=== PATIENT | female | born 1955 | race Caucasian/White ===

== ENCOUNTER 2016-12-26 16:21 | Observation (INO) | payer BC ==
[~2016-12-26] VITALS: Ht 172.7 cm; Wt 115.1 kg
[~2016-12-26 16:21] MED LIST: ALAVERT10 M1 PO; ALDACTONE 25MG25 M1 PO; ALLEGRA 180MG180 MG PO; AMOXICILLIN 8751 TAB PO; ASPIRIN 32325 MG/TAB PO; ASPIRIN E.C. 8181 MG PO; BENADRYL25 M2 PO; BUSPAR DIVIDOSE15 MG PO; CALCIUM + D 6001 TAB PO; CALCIUM 600MG+D1 TAB PO; CALCIUM-500 5001 CTB PO; CALCIUM600 M2 PO; CLARITIN 1010 MG/TAB PO; COLACE 100100 MG/CAP PO; COUMADIN 1010 MG/TAB PO; COUMADIN 5MG5 MG/TAB; COUMADIN 5MG5 MG/TAB PO; COZAAR 50MG50 MG/TAB PO; DESYREL 50MG50 MG PO; EFFEXOR 3737.5 MG/TA PO; EFFEXOR XR75 MG/CAP PO; FIORICET 325 MG1 TA1 PO; FLONASE NASAL S16 GM NS; FOLIC ACID 40400 MCG PO; FOLIC ACID0.4 MG PO; GLUCOSAMINE 1000 PO; GLUCOSAMINE500 M1 PO; HORIZANT600 MG PO; IRON325 M1 PO; K-DUR 10 MEQ T10 MEQ PO; LANAVITE1 CAP PO; LASIX 20MG TABL20 MG PO; LEVAQUIN 2250 MG/TAB PO; LEVAQUIN 750MG750 M1 PO; LOVENOX120 MG/0.8 SQ; MULTIPLE VITAMI1 TA5 PO; NEURONTIN300 MG/CAP PO; NEURONTIN600 MG/TAB PO; NITROSTAT0.4 MG/TAB SL; NORCO 325 MG-101 TAB PO; NORVASC 5MG5 MG/TAB PO; NYSTATIN OINTME15 GM TP; PERICOLACE; PROTONIX 40MG T40 MG PO; PROTONIX20 MG PO; TOPAMAX200 MG PO; TYLENOL 500MG500 MG PO; TYLENOL PM EXTR1 TA1 PO; ULTRAM 50MG TAB50 MG PO; VITAMIN C500 MG PO; Vicodin PO; ZOLOFT 100MG100 MG PO; ZYRTEC5 MG PO
[2016-12-26 16:46] LABS: BASO # 0.1 (0.0-0.2); BASO % 1.1 % (0.0-2.0); EOS # 0.1 (0.0-0.7); EOS % 1.1 % (0-4.0); GRAN # 1.9 (1.4-6.5); GRAN % 40.4 % (42.2-75.2); HEMATOCRIT 36.1 % (37.0-47.0); HEMOGLOBIN 10.9 g/dl (12.5-16.0); LYMPH # 2.3 (1.2-3.4); LYMPH % 48.8 % (20.0-51.0); MEAN CELL VOLUME 80 fl (80.0-100.0); MEAN CORPUSCULAR HEMOGLOBIN 24 pg (27.0-31.0); MEAN CORPUSCULAR HGB CONC 30 g/dl (33.0-37.0); MEAN PLATELET VOLUME 9.4 fl (7.4-10.4); MONO # 0.4 (0.1-0.6); MONO % 8.4 % (1.7-9.3); PLATELET COUNT 317 K/mm3 (130-400); RED BLOOD COUNT 4.51 M/mm3 (4.10-5.30); REDCELL DISTRIBUTION WIDTH-CV 17.3 % (11.5-14.5); WHITE BLOOD COUNT 4.7 K/mm3 (4.8-10.8)
[2016-12-26 16:50] LABS: INR 3.6 (0.8-3.0); PROTHROMBIN TIME 41.9 SECONDS (9.7-12.8)
[2016-12-26 16:57] LABS: ADJUSTED CALCIUM 8.8 mg/dL (8.4-10.2); ALANINE AMINOTRANSFERASE 26 U/L (9-52); ALBUMIN 4.4 gm/dL (3.5-5.0); ALKALINE PHOSPHATASE 82 U/L (50-136); ANION GAP 10 mmol/L (7-16); BILIRUBIN,TOTAL 0.4 mg/dL (0.0-1.0); BLOOD UREA NITROGEN 16 mg/dL (7-17); CALCIUM 9.1 mg/dL (8.4-10.2); CARBON DIOXIDE 26 mmol/L (22-30); CHLORIDE 102 mmol/L (98-107); CREATININE, serum 0.78 mg/dL (0.52-1.25); GLUCOSE 102 mg/dL (74-106); POTASSIUM 4.2 mmol/L (3.4-5.0); SODIUM 139 mmol/L (137-145); TOTAL PROTEIN 7.7 gm/dL (6.4-8.2)
[2016-12-26 21:19] LABS: PH 6 (5-8); SQUAMOUS EPITHELIAL 0-2 /hpf; URINE APPEARANCE Clear; URINE BACTERIA None Seen /hpf; URINE BILIRUBIN Negative (NEGATIVE); URINE BLOOD Negative (NEGATIVE); URINE COLOR Straw; URINE GLUCOSE Negative (NEGATIVE); URINE KETONE Negative (NEGATIVE); URINE RBC 0-2 /hpf; URINE UROBILINOGEN Negative (NEGATIVE); URINE WBC 0-2 /hpf
[2016-12-26 21:21] VITALS: BP 128/78; PULSE 99; TEMP 98.7
[2016-12-26 21:30] LABS: AMPHETAMINE URINE NEGATIVE; BARBITURATES URINE POSITIVE; BENZODIAZEPINES URINE NEGATIVE; BUPRENORPHINE URINE NEGATIVE; METHADONE URINE NEGATIVE; OPIATES URINE POSITIVE; OXYCODONE URINE NEGATIVE; PHENCYCLIDINE URINE NEGATIVE; PROPOXYPHENE URINE NEGATIVE; THC CANNABINOIDS URINE NEGATIVE
[2016-12-27 03:51] VITALS: BP 125/68; PULSE 60; TEMP 98.5
[2016-12-27 07:40] LABS: BASO % 1.2 % (0.0-2.0); EOS # 0.1 (0.0-0.7); EOS % 2.5 % (0-4.0); GRAN # 1.4 (1.4-6.5); GRAN % 42.1 % (42.2-75.2); HEMATOCRIT 37.1 % (37.0-47.0); LYMPH # 1.5 (1.2-3.4); LYMPH % 46.7 % (20.0-51.0); MEAN CELL VOLUME 82 fl (80.0-100.0); MEAN CORPUSCULAR HEMOGLOBIN 24 pg (27.0-31.0); MEAN CORPUSCULAR HGB CONC 30 g/dl (33.0-37.0); MEAN PLATELET VOLUME 9.3 fl (7.4-10.4); MONO # 0.2 (0.1-0.6); MONO % 7.5 % (1.7-9.3); PLATELET COUNT 283 K/mm3 (130-400); RED BLOOD COUNT 4.52 M/mm3 (4.10-5.30); REDCELL DISTRIBUTION WIDTH-CV 17.5 % (11.5-14.5); WHITE BLOOD COUNT 3.2 K/mm3 (4.8-10.8)
[2016-12-27 07:46] LABS: INR 3.3 (0.8-3.0); PROTHROMBIN TIME 38.2 SECONDS (9.7-12.8)
[2016-12-27 07:51] VITALS: BP 145/84; PULSE 63; TEMP 98.4
[2016-12-27 07:56] LABS: CALCIUM 8.7 mg/dL (8.4-10.2); CREATININE, serum 0.76 mg/dL (0.52-1.25); POTASSIUM 3.8 mmol/L (3.4-5.0)
[2016-12-27] MEDS ORDERED: NEURONTIN300 MG/CAP PO (08:10)
[2016-12-27] MEDS ORDERED: NORCO 325 MG-7.1 TAB PO ×2 (08:18→08:19)
[2016-12-27] MEDS ORDERED: COUMADIN4 MG PO ×2 (09:17→10:54)
== END 2016-12-27 10:49 | disposition home or self-care (01) ==
LOC: COL.ER 16:21 → MEDICAL 20:34
PROVIDERS: Emergency Medicine; Internal Medicine
DX: R51 Headache (principal); M85.2 Hyperostosis of skull; I10 Essential (primary) hypertension; D64.9 Anemia, unspecified; I25.10 Atherosclerotic heart disease of native coronary artery without angina pectoris; J96.10 Chronic respiratory failure, unspecified whether with hypoxia or hypercapnia; D72.819 Decreased white blood cell count, unspecified; Z87.820 Personal history of traumatic brain injury; Z79.01 Long term (current) use of anticoagulants
CPT/HCPCS: G0378; J1170; J1200; J1650; J1885; J2550; J7030

== ENCOUNTER 2017-03-12 12:06 | Emergency (ER) | payer BC ==
[~2017-03-12] VITALS: Ht 175.3 cm; Wt 118.2 kg
[~2017-03-12 12:06] MED LIST changes: +COUMADIN4 MG PO; +NORCO 325 MG-7.1 TAB PO
[2017-03-12 12:40] LABS: BASO % 0.7 % (0.0-2.0); EOS # 0.1 (0.0-0.7); EOS % 1.1 % (0-4.0); GRAN # 2.7 (1.4-6.5); GRAN % 48.7 % (42.2-75.2); LYMPH # 2.3 (1.2-3.4); LYMPH % 40.9 % (20.0-51.0); MEAN CELL VOLUME 79 fl (80.0-100.0); MEAN CORPUSCULAR HGB CONC 30 g/dl (33.0-37.0); MONO # 0.5 (0.1-0.6); MONO % 8.4 % (1.7-9.3); PLATELET COUNT 264 K/mm3 (130-400); REDCELL DISTRIBUTION WIDTH-CV 18.1 % (11.5-14.5); WHITE BLOOD COUNT 5.5 K/mm3 (4.8-10.8)
[2017-03-12 12:43] LABS: HEMATOCRIT 32.3 % (37.0-47.0); HEMOGLOBIN 9.7 g/dl (12.5-16.0); MEAN CORPUSCULAR HEMOGLOBIN 24 pg (27.0-31.0)
[2017-03-12 12:50] LABS: ADJUSTED CALCIUM 8.8 mg/dL (8.4-10.2); ALANINE AMINOTRANSFERASE 26 U/L (9-52); ALKALINE PHOSPHATASE 71 U/L (50-136); ANION GAP 8 mmol/L (7-16); BILIRUBIN,TOTAL 0.3 mg/dL (0.0-1.0); BLOOD UREA NITROGEN 15 mg/dL (7-17); CALCIUM 8.8 mg/dL (8.4-10.2); CARBON DIOXIDE 25 mmol/L (22-30); CHLORIDE 105 mmol/L (98-107); CREATININE, serum 0.87 mg/dL (0.52-1.25); GLUCOSE 85 mg/dL (74-106); POTASSIUM 4.1 mmol/L (3.4-5.0); SODIUM 139 mmol/L (137-145); TOTAL PROTEIN 6.9 gm/dL (6.4-8.2)
[2017-03-12] MEDS ORDERED: NORVASC 5MG5 MG/TAB PO (13:01)
[2017-03-12] MEDS ORDERED: MULTIVITAMIN1 CTB PO (13:01)
[2017-03-12 13:02] LABS: B-TYPE NATRIURETIC PEPTIDE 1880 pg/mL (0-125)
[2017-03-12] MEDS ORDERED: EFFEXOR XR75 MG/CAP PO (13:02)
[2017-03-12 13:03] LABS: TROPONIN-I < 0.012 ng/mL (0.000-0.034)
[2017-03-12] MEDS ORDERED: NORCO 325 MG-101 TAB PO (13:05)
[2017-03-12 13:08] LABS: PARTIAL THROMBOPLASTIN TIME 39.3 SECONDS (26.0-37.0)
[2017-03-12 13:17] LABS: INR 2.8 (0.8-3.0); PROTHROMBIN TIME 32.7 SECONDS (9.7-12.8)
[2017-03-12] MEDS ORDERED: COUMADIN 5MG5 MG/TAB PO ×2 (14:03→14:08)
[2017-03-12] MEDS ORDERED: LASIX 20MG TABL20 MG PO (14:06)
[2017-03-12 16:11] VITALS: BP 128/91; PULSE 62
== END 2017-03-12 16:10 | disposition home or self-care (01) ==
LOC: COL.ER 12:06
PROVIDERS: Emergency Medicine
DX: I11.0 Hypertensive heart disease with heart failure (principal); I50.9 Heart failure, unspecified; R07.9 Chest pain, unspecified; I25.10 Atherosclerotic heart disease of native coronary artery without angina pectoris; Z86.711 Personal history of pulmonary embolism; Z86.718 Personal history of other venous thrombosis and embolism; Z79.01 Long term (current) use of anticoagulants; J44.9 Chronic obstructive pulmonary disease, unspecified; D68.2 Hereditary deficiency of other clotting factors; Z98.0 Intestinal bypass and anastomosis status; Z95.5 Presence of coronary angioplasty implant and graft; Z99.81 Dependence on supplemental oxygen
CPT/HCPCS: J1940; J2270

== ENCOUNTER 2017-06-13 14:00 | Inpatient (IN) | payer BC, MEDICARE ==
[~2017-06-13] VITALS: Ht 175.3 cm; Wt 120.0 kg
[2017-06-13] VITALS (132 sets, daily range): BP systolic 130–147; BP diastolic 84–94; PULSE 61–63; TEMP 97.8–97.9; O2SAT 87–100
[~2017-06-13 14:00] MED LIST changes: +MULTIVITAMIN1 CTB PO
[2017-06-13 15:03] LABS: BASO % 0.6 % (0.0-2.0); EOS # 0.1 (0.0-0.7); EOS % 1.4 % (0-4.0); GRAN # 2.4 (1.4-6.5); GRAN % 46.8 % (42.2-75.2); LYMPH # 2.2 (1.2-3.4); LYMPH % 42.3 % (20.0-51.0); MEAN CELL VOLUME 79 fl (80.0-100.0); MEAN CORPUSCULAR HGB CONC 29 g/dl (33.0-37.0); MEAN PLATELET VOLUME 9.4 fl (7.4-10.4); MONO # 0.4 (0.1-0.6); MONO % 8.7 % (1.7-9.3); PLATELET COUNT 246 K/mm3 (130-400); RED BLOOD COUNT 4.05 M/mm3 (4.10-5.30); WHITE BLOOD COUNT 5.1 K/mm3 (4.8-10.8)
[2017-06-13 15:04] LABS: HEMATOCRIT 31.8 % (37.0-47.0); HEMOGLOBIN 9.2 g/dl (12.5-16.0); MEAN CORPUSCULAR HEMOGLOBIN 23 pg (27.0-31.0)
[2017-06-13 15:09] LABS: INR 1.9 (0.8-3.0); PROTHROMBIN TIME 22.3 SECONDS (9.7-12.8)
[2017-06-13 15:13] LABS: ADJUSTED CALCIUM 8.7 mg/dL (8.4-10.2); ALANINE AMINOTRANSFERASE 31 U/L (9-52); ALBUMIN 4.1 gm/dL (3.5-5.0); ALKALINE PHOSPHATASE 83 U/L (50-136); ANION GAP 8 mmol/L (7-16); BILIRUBIN,TOTAL 0.3 mg/dL (0.0-1.0); BLOOD UREA NITROGEN 20 mg/dL (7-17); CALCIUM 8.8 mg/dL (8.4-10.2); CARBON DIOXIDE 29 mmol/L (22-30); CHLORIDE 104 mmol/L (98-107); CREATININE, serum 0.83 mg/dL (0.52-1.25); GLUCOSE 98 mg/dL (74-106); LIPASE 158 U/L (23-300); POTASSIUM 3.7 mmol/L (3.4-5.0); SODIUM 141 mmol/L (137-145); TOTAL PROTEIN 7.1 gm/dL (6.4-8.2)
[2017-06-13 15:25] LABS: B-TYPE NATRIURETIC PEPTIDE 1640 pg/mL (0-125)
[2017-06-13 15:26] LABS: TROPONIN-I < 0.012 ng/mL (0.000-0.034)
[2017-06-13] MEDS ORDERED: NORCO 325 MG-101 TAB PO (16:01)
[2017-06-13] MEDS ORDERED: BUSPAR5 MG PO (16:03)
[2017-06-13 17:39] LABS: RETIC % 1.1 % (0.5-3.52)
[2017-06-14] VITALS (307 sets, daily range): BP systolic 81–129; BP diastolic 50–85; PULSE 56–97; TEMP 97.1–97.9; O2SAT 89–100
[2017-06-14 05:57] LABS: BASO # 0.1 (0.0-0.2); BASO % 1.3 % (0.0-2.0); EOS # 0.1 (0.0-0.7); EOS % 2.3 % (0-4.0); GRAN # 1.3 (1.4-6.5); GRAN % 33.6 % (42.2-75.2); LYMPH % 51.3 % (20.0-51.0); MEAN CELL VOLUME 79 fl (80.0-100.0); MEAN CORPUSCULAR HGB CONC 29 g/dl (33.0-37.0); MEAN PLATELET VOLUME 9.6 fl (7.4-10.4); MONO # 0.5 (0.1-0.6); MONO % 11.5 % (1.7-9.3); PLATELET COUNT 258 K/mm3 (130-400); RED BLOOD COUNT 4.15 M/mm3 (4.10-5.30); WHITE BLOOD COUNT 3.9 K/mm3 (4.8-10.8)
[2017-06-14 06:04] LABS: INR 2.1 (0.8-3.0); PROTHROMBIN TIME 24.8 SECONDS (9.7-12.8)
[2017-06-14 06:05] LABS: HEMATOCRIT 32.8 % (37.0-47.0); HEMOGLOBIN 9.4 g/dl (12.5-16.0); MEAN CORPUSCULAR HEMOGLOBIN 23 pg (27.0-31.0)
[2017-06-14 06:13] LABS: ANION GAP 8 mmol/L (7-16); BLOOD UREA NITROGEN 17 mg/dL (7-17); CALCIUM 9.1 mg/dL (8.4-10.2); CARBON DIOXIDE 27 mmol/L (22-30); CHLORIDE 106 mmol/L (98-107); CHOLESTEROL 145 mg/dL (120-200); CHOLESTEROL RISK RATIO 2.5; CREATININE, serum 0.75 mg/dL (0.52-1.25); GLUCOSE 90 mg/dL (74-106); HDL CHOLESTEROL 56 mg/dL; LDL CHOLESTEROL 74 mg/dL; POTASSIUM 3.9 mmol/L (3.4-5.0); SODIUM 142 mmol/L (137-145); TRIGLYCERIDE 76 mg/dL
[2017-06-14 06:31] LABS: TROPONIN-I < 0.012 ng/mL (0.000-0.034)
[2017-06-15 00:35] VITALS: BP 115/61; PULSE 58; TEMP 97.9
[2017-06-15 04:28] VITALS: BP 132/68; PULSE 58; TEMP 98.4
[2017-06-15 08:19] VITALS: BP 97/59; PULSE 87; TEMP 98.2
[2017-06-15 08:30] LABS: BASO % 0.7 % (0.0-2.0); EOS # 0.1 (0.0-0.7); EOS % 1.4 % (0-4.0); GRAN # 2.4 (1.4-6.5); GRAN % 54.2 % (42.2-75.2); LYMPH # 1.6 (1.2-3.4); LYMPH % 37.2 % (20.0-51.0); MEAN CELL VOLUME 80 fl (80.0-100.0); MEAN CORPUSCULAR HGB CONC 29 g/dl (33.0-37.0); MEAN PLATELET VOLUME 9.4 fl (7.4-10.4); MONO # 0.3 (0.1-0.6); MONO % 6.5 % (1.7-9.3); PLATELET COUNT 242 K/mm3 (130-400); RED BLOOD COUNT 4.09 M/mm3 (4.10-5.30); WHITE BLOOD COUNT 4.3 K/mm3 (4.8-10.8)
[2017-06-15 08:33] LABS: HEMATOCRIT 32.7 % (37.0-47.0); HEMOGLOBIN 9.5 g/dl (12.5-16.0); MEAN CORPUSCULAR HEMOGLOBIN 23 pg (27.0-31.0)
[2017-06-15 08:37] LABS: INR 2.3 (0.8-3.0); PROTHROMBIN TIME 27.4 SECONDS (9.7-12.8)
[2017-06-15 11:43] VITALS: BP 110/61; PULSE 79; TEMP 98.4
[2017-06-15 16:20] VITALS: BP 123/70; PULSE 73; TEMP 97.5
[2017-06-15 16:27] LABS: PARTIAL THROMBOPLASTIN TIME 34.8 SECONDS (26.0-37.0)
[2017-06-15 17:29] LABS: CALCIUM 9.2 mg/dL (8.4-10.2); CREATININE, serum 0.78 mg/dL (0.52-1.25); MAGNESIUM 2.2 mg/dL (1.6-2.3); POTASSIUM 4.1 mmol/L (3.4-5.0)
[2017-06-15 21:16] VITALS: BP 135/78; PULSE 58; TEMP 98.3
[2017-06-16] VITALS (7 sets, daily range): BP systolic 87–135; BP diastolic 51–93; PULSE 50–88; TEMP 97.6–98.6
[2017-06-16 04:33] LABS: BASO # 0.1 (0.0-0.2); BASO % 1.2 % (0.0-2.0); EOS # 0.1 (0.0-0.7); EOS % 2.1 % (0-4.0); GRAN # 1.3 (1.4-6.5); GRAN % 31.2 % (42.2-75.2); LYMPH # 2.4 (1.2-3.4); LYMPH % 56.7 % (20.0-51.0); MEAN CELL VOLUME 79 fl (80.0-100.0); MEAN CORPUSCULAR HGB CONC 29 g/dl (33.0-37.0); MEAN PLATELET VOLUME 8.9 fl (7.4-10.4); MONO # 0.4 (0.1-0.6); MONO % 8.6 % (1.7-9.3); PLATELET COUNT 251 K/mm3 (130-400); RED BLOOD COUNT 4.29 M/mm3 (4.10-5.30); WHITE BLOOD COUNT 4.2 K/mm3 (4.8-10.8)
[2017-06-16 04:37] LABS: HEMATOCRIT 33.8 % (37.0-47.0); HEMOGLOBIN 9.8 g/dl (12.5-16.0); MEAN CORPUSCULAR HEMOGLOBIN 23 pg (27.0-31.0)
[2017-06-16 04:43] LABS: CALCIUM 8.7 mg/dL (8.4-10.2); CREATININE, serum 0.72 mg/dL (0.52-1.25); POTASSIUM 3.6 mmol/L (3.4-5.0)
[2017-06-16 04:46] LABS: PROTHROMBIN TIME 23.1 SECONDS (9.7-12.8)
[2017-06-17 05:05] VITALS: BP 125/62; PULSE 84; TEMP 97.7
[2017-06-17 06:42] LABS: MEAN CELL VOLUME 80 fl (80.0-100.0); MEAN CORPUSCULAR HGB CONC 28 g/dl (33.0-37.0); MEAN PLATELET VOLUME 9.4 fl (7.4-10.4); PLATELET COUNT 283 K/mm3 (130-400); RED BLOOD COUNT 4.43 M/mm3 (4.10-5.30); WHITE BLOOD COUNT 4.3 K/mm3 (4.8-10.8)
[2017-06-17 06:45] LABS: ADD PATHOLOGY DIFF REVIEW NO; HEMATOCRIT 35.5 % (37.0-47.0); MEAN CORPUSCULAR HEMOGLOBIN 23 pg (27.0-31.0)
[2017-06-17 06:48] LABS: INR 1.3 (0.8-3.0); PROTHROMBIN TIME 14.8 SECONDS (9.7-12.8)
[2017-06-17 06:58] LABS: CALCIUM 8.9 mg/dL (8.4-10.2); CREATININE, serum 0.77 mg/dL (0.52-1.25); POTASSIUM 3.8 mmol/L (3.4-5.0)
[2017-06-17 07:20] LABS: BASOPHIL 2 % (0-2); EOSINOPHIL 1 % (0-4); LYMPHOCYTE 63 % (20.0-51.0); NEUTROPHILS 28 % (42.0-75.2); PLATELET ESTIMATE NORMAL (NORMAL); TOTAL CELLS COUNTED 100
[2017-06-17 07:21] LABS: ANISOCYTOSIS 1+; HYPOCHROMIA 3+; MICROCYTOSIS 1+
[2017-06-17 07:22] LABS: STOMATOCYTE 1+
[2017-06-17 08:16] VITALS: BP 102/57; PULSE 69; TEMP 97.5
[2017-06-17 11:42] VITALS: BP 94/59; PULSE 57; TEMP 97.6
[2017-06-17 15:22] VITALS: BP 111/59; PULSE 61; TEMP 97.7
[2017-06-17 19:44] VITALS: BP 112/55; PULSE 56; TEMP 98.6
[2017-06-17 23:43] VITALS: BP 80/54; BP 85/51; BP 95/54; PULSE 53; TEMP 97.6
[2017-06-18] VITALS (433 sets, daily range): BP systolic 81–136; BP diastolic 53–100; PULSE 50–87; TEMP 97.5–98; O2SAT 81–100
[2017-06-18 07:04] LABS: BASO % 1.3 % (0.0-2.0); EOS # 0.1 (0.0-0.7); EOS % 2.5 % (0-4.0); GRAN % 32.9 % (42.2-75.2); LYMPH # 1.7 (1.2-3.4); LYMPH % 53.8 % (20.0-51.0); MEAN CELL VOLUME 80 fl (80.0-100.0); MEAN CORPUSCULAR HGB CONC 29 g/dl (33.0-37.0); MEAN PLATELET VOLUME 9.8 fl (7.4-10.4); MONO # 0.3 (0.1-0.6); MONO % 9.5 % (1.7-9.3); PLATELET COUNT 261 K/mm3 (130-400); RED BLOOD COUNT 3.91 M/mm3 (4.10-5.30); WHITE BLOOD COUNT 3.2 K/mm3 (4.8-10.8)
[2017-06-18 07:08] LABS: HEMATOCRIT 31.1 % (37.0-47.0); HEMOGLOBIN 9.1 g/dl (12.5-16.0); MEAN CORPUSCULAR HEMOGLOBIN 23 pg (27.0-31.0)
[2017-06-18 07:09] LABS: INR 1.2 (0.8-3.0); PROTHROMBIN TIME 13.4 SECONDS (9.7-12.8)
[2017-06-18 07:12] LABS: PARTIAL THROMBOPLASTIN TIME 38.8 SECONDS (26.0-37.0)
[2017-06-18 07:13] LABS: CALCIUM 8.9 mg/dL (8.4-10.2); CREATININE, serum 0.76 mg/dL (0.52-1.25); POTASSIUM 3.9 mmol/L (3.4-5.0)
[2017-06-18] MEDS ORDERED: BUSPAR5 MG PO (08:39)
[2017-06-18 15:13] LABS: PARTIAL THROMBOPLASTIN TIME 117.3 SECONDS (26.0-37.0)
[2017-06-19] VITALS (738 sets, daily range): BP systolic 90–119; BP diastolic 56–86; PULSE 55–76; TEMP 97.7–98.6; O2SAT 70–100
[2017-06-19 04:57] LABS: BASO % 0.8 % (0.0-2.0); EOS # 0.1 (0.0-0.7); EOS % 1.4 % (0-4.0); GRAN # 2.4 (1.4-6.5); GRAN % 48.2 % (42.2-75.2); LYMPH # 2.1 (1.2-3.4); LYMPH % 40.7 % (20.0-51.0); MEAN CELL VOLUME 80 fl (80.0-100.0); MEAN CORPUSCULAR HGB CONC 29 g/dl (33.0-37.0); MEAN PLATELET VOLUME 9.9 fl (7.4-10.4); MONO # 0.5 (0.1-0.6); MONO % 8.9 % (1.7-9.3); PLATELET COUNT 255 K/mm3 (130-400); RED BLOOD COUNT 4.02 M/mm3 (4.10-5.30)
[2017-06-19 04:58] LABS: HEMATOCRIT 32.2 % (37.0-47.0); HEMOGLOBIN 9.4 g/dl (12.5-16.0); MEAN CORPUSCULAR HEMOGLOBIN 23 pg (27.0-31.0)
[2017-06-19 05:03] LABS: INR 1.1 (0.8-3.0); PROTHROMBIN TIME 13.1 SECONDS (9.7-12.8)
[2017-06-19 05:07] LABS: CALCIUM 8.7 mg/dL (8.4-10.2); CREATININE, serum 0.74 mg/dL (0.52-1.25); POTASSIUM 3.7 mmol/L (3.4-5.0)
[2017-06-20 04:23] VITALS: BP 92/53; PULSE 59; TEMP 97.6
[2017-06-20 07:05] LABS: BASO % 0.8 % (0.0-2.0); EOS # 0.1 (0.0-0.7); EOS % 2.3 % (0-4.0); GRAN # 1.8 (1.4-6.5); LYMPH # 1.5 (1.2-3.4); LYMPH % 38.4 % (20.0-51.0); MEAN CELL VOLUME 80 fl (80.0-100.0); MEAN CORPUSCULAR HGB CONC 29 g/dl (33.0-37.0); MEAN PLATELET VOLUME 9.6 fl (7.4-10.4); MONO # 0.4 (0.1-0.6); MONO % 11.5 % (1.7-9.3); PLATELET COUNT 258 K/mm3 (130-400); RED BLOOD COUNT 3.96 M/mm3 (4.10-5.30); WHITE BLOOD COUNT 3.8 K/mm3 (4.8-10.8)
[2017-06-20 07:08] LABS: HEMATOCRIT 31.8 % (37.0-47.0); HEMOGLOBIN 9.2 g/dl (12.5-16.0); MEAN CORPUSCULAR HEMOGLOBIN 23 pg (27.0-31.0)
[2017-06-20 07:20] LABS: CALCIUM 8.9 mg/dL (8.4-10.2); CREATININE, serum 0.9 mg/dL (0.52-1.25); POTASSIUM 4.1 mmol/L (3.4-5.0)
[2017-06-20 07:42] LABS: INR 1.1 (0.8-3.0)
[2017-06-20 08:36] VITALS: BP 98/51; PULSE 65; TEMP 98.1
[2017-06-20 11:35] VITALS: BP 104/71; PULSE 77; TEMP 99
[2017-06-20 16:17] VITALS: BP 110/76; PULSE 76
[2017-06-20 17:12] VITALS: BP 108/70; PULSE 58; TEMP 98.5
[2017-06-20 19:58] VITALS: BP 95/45; PULSE 60; TEMP 97.9
[2017-06-21] VITALS: BP 95/56; PULSE 59; TEMP 97.8
[2017-06-21 03:46] VITALS: BP 99/61; PULSE 65; TEMP 98
[2017-06-21 07:16] LABS: BASO % 0.8 % (0.0-2.0); EOS # 0.1 (0.0-0.7); EOS % 2.3 % (0-4.0); GRAN # 1.8 (1.4-6.5); GRAN % 46.1 % (42.2-75.2); LYMPH # 1.5 (1.2-3.4); LYMPH % 39.6 % (20.0-51.0); MEAN CELL VOLUME 81 fl (80.0-100.0); MEAN CORPUSCULAR HGB CONC 29 g/dl (33.0-37.0); MEAN PLATELET VOLUME 9.6 fl (7.4-10.4); MONO # 0.4 (0.1-0.6); MONO % 10.9 % (1.7-9.3); PLATELET COUNT 255 K/mm3 (130-400); RED BLOOD COUNT 3.94 M/mm3 (4.10-5.30); WHITE BLOOD COUNT 3.8 K/mm3 (4.8-10.8)
[2017-06-21 07:17] LABS: HEMATOCRIT 31.7 % (37.0-47.0); HEMOGLOBIN 9.2 g/dl (12.5-16.0); MEAN CORPUSCULAR HEMOGLOBIN 23 pg (27.0-31.0)
[2017-06-21 07:20] LABS: INR 1.2 (0.8-3.0); PROTHROMBIN TIME 13.6 SECONDS (9.7-12.8)
[2017-06-21 07:27] LABS: CALCIUM 8.9 mg/dL (8.4-10.2); CREATININE, serum 0.81 mg/dL (0.52-1.25); POTASSIUM 3.7 mmol/L (3.4-5.0)
[2017-06-21 08:33] VITALS: BP 95/60; PULSE 69; TEMP 97.6
[2017-06-21 11:34] VITALS: BP 91/54; PULSE 60; TEMP 98.3
[2017-06-21 16:40] VITALS: BP 109/56; PULSE 22; TEMP 97.9
[2017-06-21 19:47] VITALS: BP 114/70; PULSE 64; TEMP 97.6
[2017-06-22 00:11] VITALS: BP 104/56; PULSE 57; TEMP 97.4
[2017-06-22 03:46] VITALS: BP 107/53; PULSE 53; TEMP 97.9
[2017-06-22 07:30] LABS: BASO % 1.3 % (0.0-2.0); EOS # 0.1 (0.0-0.7); EOS % 2.6 % (0-4.0); GRAN # 1.3 (1.4-6.5); GRAN % 39.9 % (42.2-75.2); LYMPH # 1.5 (1.2-3.4); LYMPH % 46.3 % (20.0-51.0); MEAN CELL VOLUME 81 fl (80.0-100.0); MEAN CORPUSCULAR HGB CONC 29 g/dl (33.0-37.0); MEAN PLATELET VOLUME 9.9 fl (7.4-10.4); MONO # 0.3 (0.1-0.6); MONO % 9.9 % (1.7-9.3); PLATELET COUNT 252 K/mm3 (130-400); RED BLOOD COUNT 4.01 M/mm3 (4.10-5.30); WHITE BLOOD COUNT 3.1 K/mm3 (4.8-10.8)
[2017-06-22 07:31] VITALS: BP 106/68; PULSE 59; TEMP 97.9
[2017-06-22 07:35] LABS: HEMATOCRIT 32.5 % (37.0-47.0); HEMOGLOBIN 9.4 g/dl (12.5-16.0); MEAN CORPUSCULAR HEMOGLOBIN 23 pg (27.0-31.0)
[2017-06-22 07:38] LABS: CALCIUM 9.2 mg/dL (8.4-10.2); CREATININE, serum 0.78 mg/dL (0.52-1.25); POTASSIUM 3.9 mmol/L (3.4-5.0)
[2017-06-22 07:43] LABS: INR 1.3 (0.8-3.0); PROTHROMBIN TIME 15.3 SECONDS (9.7-12.8)
[2017-06-22 11:23] VITALS: BP 92/67; PULSE 60; TEMP 97.5
[2017-06-22] MEDS ORDERED: FERROUS SU325 MG/TAB PO (13:31)
[2017-06-22] MEDS ORDERED: EFFIENT5 MG PO (13:31)
[2017-06-22] MEDS ORDERED: IMDUR 30MG30 MG/TAB PO (13:32)
[2017-06-22] MEDS ORDERED: LOPRESSOR 225 MG/TAB PO (13:34)
[2017-06-22] MEDS ORDERED: ASPIRIN E.C. 8181 MG PO (13:35)
[2017-06-22] MEDS ORDERED: EFFIENT10 MG PO (14:49)
[2017-06-22] MEDS ORDERED: NITROSTAT0.4 MG/TAB SL (14:50)
== END 2017-06-22 15:38 | disposition home or self-care (01) | DRG 247 ==
LOC: COL.ER 14:00 → ICU 16:04 → MEDICAL 06-14 08:44 → ICU 06-14 08:45 → MEDICAL 06-14 09:00 → EU 06-14 09:08 → MEDICAL 06-14 09:08 → EU 06-14 09:08 → MEDICAL 06-14 09:08 → ICU 06-15 11:00 → MEDICAL 06-15 11:01 → ICU 06-18 11:45 → MEDICAL 06-18 11:45 → ICU 06-18 11:45 → MEDICAL 06-19 15:28 → ICU 06-19 15:28 → MEDICAL 06-19 16:00
PROVIDERS: Emergency Medicine; Internal Medicine; Internal Medicine Cardiovascular Disease; Nurse Practitioner Family; Physician Assistant
PROC: 027034Z Dilation of Coronary Artery, One Artery with Drug-eluting Intraluminal Device, Percutaneous Approach (ICD-10-PCS; principal; 2017-06-18)
PROC: B2111ZZ Fluoroscopy of Multiple Coronary Arteries using Low Osmolar Contrast (ICD-10-PCS; 2017-06-18)
PROC: 4A023N8 Measurement of Cardiac Sampling and Pressure, Bilateral, Percutaneous Approach (ICD-10-PCS; 2017-06-18)
DX: T82.855A Stenosis of coronary artery stent, initial encounter (principal); I24.9 Acute ischemic heart disease, unspecified; I50.22 Chronic systolic (congestive) heart failure; D68.51 Activated protein C resistance; I69.354 Hemiplegia and hemiparesis following cerebral infarction affecting left non-dominant side; I47.2 Ventricular tachycardia; J96.11 Chronic respiratory failure with hypoxia; I11.0 Hypertensive heart disease with heart failure; J44.9 Chronic obstructive pulmonary disease, unspecified; M79.7 Fibromyalgia; R42 Dizziness and giddiness; I48.0 Paroxysmal atrial fibrillation; D50.9 Iron deficiency anemia, unspecified; I25.2 Old myocardial infarction; I69.398 Other sequelae of cerebral infarction; Z95.5 Presence of coronary angioplasty implant and graft; Z79.01 Long term (current) use of anticoagulants; Z87.891 Personal history of nicotine dependence; Z98.84 Bariatric surgery status
CPT/HCPCS: 99223-AI; 99231-AI; 99232-AI; 99233-AI; A9502; C1725; C1760; C1769; C1874; C1876; C1887; C1894; G0378; J0153; J1644; J2250; J2785; J3010; J7030; Q9967

== ENCOUNTER 2018-01-21 19:18 | Emergency (ER) | payer BC ==
[~2018-01-21] VITALS: Ht 170.2 cm; Wt 113.6 kg
[~2018-01-21 19:18] MED LIST changes: +BUSPAR5 MG PO; +EFFIENT10 MG PO; +EFFIENT5 MG PO; +FERROUS SU325 MG/TAB PO; +IMDUR 30MG30 MG/TAB PO; +LOPRESSOR 225 MG/TAB PO
[2018-01-21 19:22] VITALS: BP 101/62; TEMP 98
[2018-01-21 19:51] LABS: BASO % 0.4 % (0.0-2.0); EOS # 0.1 (0.0-0.7); GRAN # 1.9 (1.4-6.5); GRAN % 41.7 % (42.2-75.2); HEMATOCRIT 42.5 % (37.0-47.0); HEMOGLOBIN 13.9 g/dl (12.5-16.0); LYMPH # 2.1 (1.2-3.4); LYMPH % 47.2 % (20.0-51.0); MEAN CELL VOLUME 102 fl (80.0-100.0); MEAN CORPUSCULAR HEMOGLOBIN 33 pg (27.0-31.0); MEAN CORPUSCULAR HGB CONC 33 g/dl (33.0-37.0); MONO # 0.4 (0.1-0.6); MONO % 8.5 % (1.7-9.3); PLATELET COUNT 190 K/mm3 (130-400); RED BLOOD COUNT 4.18 M/mm3 (4.10-5.30); REDCELL DISTRIBUTION WIDTH-CV 13.2 % (11.5-14.5)
[2018-01-21 19:56] LABS: INR 2.5 (0.8-3.0)
[2018-01-21 20:02] LABS: BILIRUBIN,TOTAL 0.3 mg/dL (0.0-1.0); CREATININE, serum 0.72 mg/dL (0.52-1.25); POTASSIUM 3.7 mmol/L (3.4-5.0); TOTAL PROTEIN 7.1 gm/dL (6.4-8.2)
[2018-01-21 20:55] VITALS: PULSE 61
== END 2018-01-21 20:55 | disposition home or self-care (01) ==
LOC: COL.ER 19:18
PROVIDERS: Emergency Medicine
DX: S06.0X0A Concussion without loss of consciousness, initial encounter (principal); S00.83XA Contusion of other part of head, initial encounter; S40.022A Contusion of left upper arm, initial encounter; I50.9 Heart failure, unspecified; J44.9 Chronic obstructive pulmonary disease, unspecified; M79.7 Fibromyalgia; Z79.01 Long term (current) use of anticoagulants; Z79.82 Long term (current) use of aspirin; W10.9XXA Fall (on) (from) unspecified stairs and steps, initial encounter; Y92.009 Unspecified place in unspecified non-institutional (private) residence as the place of occurrence of the external cause

== ENCOUNTER 2018-02-16 18:43 | Emergency (ER) | payer BC ==
[~2018-02-16] VITALS: Ht 175.3 cm; Wt 117.3 kg
[2018-02-16 18:48] VITALS: BP 108/68; TEMP 98
[2018-02-16 19:52] LABS: BASO # 0.1 (0.0-0.2); BASO % 0.9 % (0.0-2.0); EOS # 0.2 (0.0-0.7); EOS % 3.4 % (0-4.0); GRAN % 37.1 % (42.2-75.2); HEMATOCRIT 40.5 % (37.0-47.0); HEMOGLOBIN 13.1 g/dl (12.5-16.0); LYMPH # 2.6 (1.2-3.4); LYMPH % 48.9 % (20.0-51.0); MEAN CELL VOLUME 102 fl (80.0-100.0); MEAN CORPUSCULAR HEMOGLOBIN 33 pg (27.0-31.0); MEAN CORPUSCULAR HGB CONC 32 g/dl (33.0-37.0); MONO # 0.5 (0.1-0.6); MONO % 9.5 % (1.7-9.3); PLATELET COUNT 176 K/mm3 (130-400); RED BLOOD COUNT 3.96 M/mm3 (4.10-5.30); REDCELL DISTRIBUTION WIDTH-CV 13.3 % (11.5-14.5)
[2018-02-16 19:57] LABS: INR 2.9 (0.8-3.0); PROTHROMBIN TIME 33.3 SECONDS (9.7-12.8)
[2018-02-16 20:10] LABS: ALBUMIN 3.8 gm/dL (3.5-5.0); BILIRUBIN,TOTAL 0.3 mg/dL (0.0-1.0); CREATININE, serum 0.63 mg/dL (0.52-1.25); MAGNESIUM 2.2 mg/dL (1.6-2.3); PHOSPHOROUS 4.7 mg/dL (2.5-4.5); POTASSIUM 4.1 mmol/L (3.4-5.0); TOTAL PROTEIN 6.7 gm/dL (6.4-8.2)
[2018-02-16 22:12] LABS: COLLECTION METHOD CLEAN CATCH
[2018-02-16 22:17] LABS: PH 6 (5-8); SQUAMOUS EPITHELIAL 0-2 /hpf; URINE APPEARANCE Clear; URINE BACTERIA None Seen /hpf; URINE BILIRUBIN Negative (NEGATIVE); URINE BLOOD Negative (NEGATIVE); URINE COLOR Straw; URINE GLUCOSE Negative (NEGATIVE); URINE KETONE Negative (NEGATIVE); URINE LEUKOCYTE ESTERASE Negative (NEGATIVE); URINE NITRATE Negative (NEGATIVE); URINE PROTEIN(semi-quant) Negative (NEGATIVE); URINE RBC 0-2 /hpf; URINE UROBILINOGEN Negative (NEGATIVE)
[2018-02-16 23:04] VITALS: PULSE 60
== END 2018-02-16 23:05 | disposition home or self-care (01) ==
LOC: COL.ER 18:43
PROVIDERS: Emergency Medicine
DX: G43.909 Migraine, unspecified, not intractable, without status migrainosus (principal); I25.10 Atherosclerotic heart disease of native coronary artery without angina pectoris; I50.9 Heart failure, unspecified; J44.9 Chronic obstructive pulmonary disease, unspecified; M79.7 Fibromyalgia; Z86.73 Personal history of transient ischemic attack (TIA), and cerebral infarction without residual deficits; Z98.84 Bariatric surgery status; Z79.82 Long term (current) use of aspirin; Z79.01 Long term (current) use of anticoagulants
CPT/HCPCS: J1200; J2550; J7050

== ENCOUNTER 2018-04-24 20:13 | Emergency (ER) | payer BC ==
[~2018-04-24] VITALS: Ht 170.2 cm; Wt 115.9 kg
[2018-04-24 20:20] VITALS: TEMP 97.8
[2018-04-24 21:23] LABS: BASO % 0.8 % (0.0-2.0); EOS # 0.1 (0.0-0.7); EOS % 1.7 % (0-4.0); GRAN # 1.9 (1.4-6.5); GRAN % 39.7 % (42.2-75.2); HEMATOCRIT 42.6 % (37.0-47.0); HEMOGLOBIN 13.6 g/dl (12.5-16.0); LYMPH # 2.4 (1.2-3.4); LYMPH % 49.6 % (20.0-51.0); MEAN CELL VOLUME 104 fl (80.0-100.0); MEAN CORPUSCULAR HEMOGLOBIN 33 pg (27.0-31.0); MEAN CORPUSCULAR HGB CONC 32 g/dl (33.0-37.0); MEAN PLATELET VOLUME 9.7 fl (7.4-10.4); MONO # 0.4 (0.1-0.6); PLATELET COUNT 174 K/mm3 (130-400); REDCELL DISTRIBUTION WIDTH-CV 13.4 % (11.5-14.5)
[2018-04-24 21:28] LABS: INR 3.7 (0.8-3.0)
[2018-04-24 21:31] LABS: BILIRUBIN,TOTAL 0.3 mg/dL (0.0-1.0); CALCIUM 8.3 mg/dL (8.4-10.2); CREATININE, serum 0.79 mg/dL (0.52-1.25); POTASSIUM 3.8 mmol/L (3.4-5.0); TOTAL PROTEIN 6.9 gm/dL (6.4-8.2)
[2018-04-24 23:16] VITALS: BP 126/76; PULSE 60
== END 2018-04-24 23:17 | disposition home or self-care (01) ==
LOC: COL.ER 20:13
PROVIDERS: Emergency Medicine
DX: S09.90XA Unspecified injury of head, initial encounter (principal); S39.012A Strain of muscle, fascia and tendon of lower back, initial encounter; S40.011A Contusion of right shoulder, initial encounter; R79.1 Abnormal coagulation profile; I10 Essential (primary) hypertension; I25.10 Atherosclerotic heart disease of native coronary artery without angina pectoris; Z79.01 Long term (current) use of anticoagulants; Z79.82 Long term (current) use of aspirin; W11.XXXA Fall on and from ladder, initial encounter; Y92.009 Unspecified place in unspecified non-institutional (private) residence as the place of occurrence of the external cause
CPT/HCPCS: J3010

== ENCOUNTER 2018-05-09 16:15 | Emergency (ER) | payer BC ==
[~2018-05-09] VITALS: Ht 172.7 cm; Wt 115.9 kg
[2018-05-09 16:26] VITALS: BP 117/74; TEMP 97.8
[2018-05-09 17:42] LABS: INR 2.6 (0.8-3.0); PROTHROMBIN TIME 29.5 SECONDS (9.7-12.8)
[2018-05-09 17:55] VITALS: PULSE 55
== END 2018-05-09 17:55 | disposition home or self-care (01) ==
LOC: COL.ER 16:15
PROVIDERS: Emergency Medicine
DX: M25.551 Pain in right hip (principal); R07.89 Other chest pain; I48.91 Unspecified atrial fibrillation; I25.10 Atherosclerotic heart disease of native coronary artery without angina pectoris; I10 Essential (primary) hypertension; M79.7 Fibromyalgia; F32.9 Major depressive disorder, single episode, unspecified; F41.9 Anxiety disorder, unspecified; Z79.01 Long term (current) use of anticoagulants; Z79.82 Long term (current) use of aspirin; W19.XXXA Unspecified fall, initial encounter; Y92.009 Unspecified place in unspecified non-institutional (private) residence as the place of occurrence of the external cause

== ENCOUNTER 2018-10-24 08:03 | Inpatient (IN) | payer BC, MEDICARE ==
[2018-10-24] VITALS (18 sets, daily range): BP systolic 82–155; BP diastolic 62–99; PULSE 62–88; TEMP 97.5–98.8
[~2018-10-24] VITALS: Ht 172.7 cm; Wt 115.3 kg
[~2018-10-24 08:03] MED LIST changes: +CHEWABLE VITE W1 CTB PO; -MULTIVITAMIN1 CTB PO
--- NOTE | 2018-10-24 08:45 | NUR ---
PIV in L AC started by Adithya Cannon from [employer]. Pt c/o pain when PIV in L AC flushed. PIV removed with catheter intact.
[2018-10-24 08:51] LABS: CALCIUM 9.2 mg/dL (8.4-10.2); CREATININE, serum 0.71 (0.52-1.25)
[2018-10-24 08:55] LABS: HEMATOCRIT 44.3 % (37.0-47.0); HEMOGLOBIN 13.9 g/dl (12.5-16.0); MEAN CELL VOLUME 103 fl (80.0-100.0); MEAN CORPUSCULAR HEMOGLOBIN 32 pg (27.0-31.0); MEAN CORPUSCULAR HGB CONC 31 g/dl (33.0-37.0); MEAN PLATELET VOLUME 9.7 fl (7.4-10.4); PLATELET COUNT 184 K/mm3 (130-400); RED BLOOD COUNT 4.29 M/mm3 (4.10-5.30); REDCELL DISTRIBUTION WIDTH-CV 14.1 % (11.5-14.5)
[2018-10-24 09:01] LABS: INR 1.1 (0.8-3.0); PROTHROMBIN TIME 12.5 SECONDS (9.7-12.8)
[2018-10-24] MEDS ORDERED: VOLTAREN GEL 1%1 TU TP (09:33)
[2018-10-24] MEDS ORDERED: ZEBETA 5MG5 MG PO (09:36)
[2018-10-24] MEDS ORDERED: NEURONTIN300 MG/CAP PO (09:39)
[2018-10-24] MEDS ORDERED: LASIX 20MG TABL20 MG PO (09:45)
[2018-10-24] MEDS ORDERED: ATARAX 25MG25 MG/TAB PO ×2 (09:46→09:47)
[2018-10-24] MEDS ORDERED: CLARITIN 1010 MG/TAB PO (09:52)
[2018-10-24] MEDS ORDERED: FERRO-TIME325 MG PO (09:53)
[2018-10-24] MEDS ORDERED: ASPIRIN E.C. 8181 MG PO (09:53)
[2018-10-24] MEDS ORDERED: SENNA-S 50 MG-81 TAB PO (09:55)
[2018-10-24] MEDS ORDERED: PREVACID 15MG15 M1 PO (09:56)
[2018-10-24] MEDS ORDERED: LOVENOX 100100 MG/ML SQ (09:56)
--- NOTE | 2018-10-24 10:26 | NUR ---
SEE MERGE FOR ALL ADMINISTRATION TIMES OF MEDICATIONSAND FOR INTRA/POST SEDATION ASSESSMENT. POSTIVE ALLENS FOR RADIAL APPROACH.
--- NOTE | 2018-10-24 13:45 | NUR ---
Oozing at right femoral site, dressing changed and manual pressure applied. New dressing applied and sand bag to site to aid in reduction of bleeding. patient aware, no questions.
--- NOTE | 2018-10-24 22:33 | NUR ---
Patient called to report a "Zapping" pain going down her right leg. Groin site assessed and a firm swelling was noted around the cath groin site. Distal pulses continued to be a 2 and foot was warm with cap refill less than 3. Bleeding was noted to have spread past previously marked area on gauze. Other RN on duty was called to assist holding pressure and this nurse called Dr. Reyes to recive further instructions.
[2018-10-25] VITALS (32 sets, daily range): BP systolic 73–137; BP diastolic 50–90; PULSE 68–89; TEMP 97.5–98.9
--- NOTE | 2018-10-25 02:10 | NUR ---
Femstop deflated at this time. Hematoma still felt under skin but size has reduced and firmness has lessened especially towards the inner thigh. Bruising noted and marked with a marker. Pulse continue to be +2. Ice pack is on inner thigh to help with swelling. Patient's back side was assessed for swelling or brusing. Patient reported some lower back pain but reports that it is due to her "stegosaurus" hump. Patient has kyphosis and states that the pain is per her usual. Will continue to monitor. BP's have stabalized in the low 100's systolic and pulse ranging from 60's-70's.
--- NOTE | 2018-10-25 04:15 | NUR ---
Reported waking up from sleep with sudden throbbing pain in right leg. Groin site assessed and the hematoma appears to have firmed up in the upper portion of the thigh. Distal pulses +2. Femstop reapplied per instructions at this time. PRN [place] administered. After only 3 minutes of wearing the femstop pt reported the pain was starting to improve.Will continue to monitor.
[2018-10-25 06:21] LABS: BASO % 0.4 % (0.0-2.0); EOS % 0.2 % (0-4.0); GRAN # 4.2 (1.4-6.5); GRAN % 77.2 % (42.2-75.2); HEMATOCRIT 39.3 % (37.0-47.0); HEMOGLOBIN 12.2 g/dl (12.5-16.0); LYMPH # 0.9 (1.2-3.4); LYMPH % 16.7 % (20.0-51.0); MEAN CELL VOLUME 103 fl (80.0-100.0); MEAN CORPUSCULAR HEMOGLOBIN 32 pg (27.0-31.0); MEAN CORPUSCULAR HGB CONC 31 g/dl (33.0-37.0); MEAN PLATELET VOLUME 9.4 fl (7.4-10.4); MONO # 0.3 (0.1-0.6); MONO % 5.3 % (1.7-9.3); PLATELET COUNT 161 K/mm3 (130-400); RED BLOOD COUNT 3.83 M/mm3 (4.10-5.30); REDCELL DISTRIBUTION WIDTH-CV 14.1 % (11.5-14.5)
[2018-10-25 06:25] LABS: INR 1.1 (0.8-3.0); PROTHROMBIN TIME 12.8 SECONDS (9.7-12.8)
[2018-10-25 06:31] LABS: CREATININE, serum 0.74 (0.52-1.25); POTASSIUM 3.6 mmol/L (3.4-5.0)
--- NOTE | 2018-10-25 08:00 | NUR ---
[facility] Cardiology team (GOPAL Ordaz and AilynRN) in express unit - notified of large hematoma on right groin: pedal pulses 2+ easy to palpate, neurovascular check intact in right lower extremity. Groin site softball size, frim, "very tender" to touch. 0822 Femo-Stop compression removed per protocol, orders requested regarding Femo-Stop - orders pending 0830 AilynRN at bedside assessing groin site and elevated Right leg on 1 pillow Pt does state that pain is getting better.
--- NOTE | 2018-10-25 08:58 | NUR ---
MD Ysabel in room
--- NOTE | 2018-10-25 09:06 | NUR ---
Initial visit; Patient and thanked [employer] for looking in on her and keeping her in [employer]'s prayers.
[2018-10-25] MEDS ORDERED: PLAVIX 75MG TAB75 MG PO (09:50)
--- NOTE | 2018-10-25 10:26 | NUR ---
SW student met with patient and patients (Lewis) and daughter (Tiarra). Patient lives in [place] with her . Patient's PCP is Dr. [place] and she uses the [facility]. Patient uses a cane and is on 2-3L of oxygen at home. Patient reports independence with ADLs. Patient's DPOA-HC is in EMR and she has designated her (Lewis) and son (Octavio). Patient plans to return home upon discharge at this time. SW to continue to follow to ensure a safe discharge and follow up on any recommendations.
--- NOTE | 2018-10-25 10:28 | NUR ---
1028: MD Ysabel notified of asymptomatic hypotension, groin site unchanged (large hematoma, firm, softball/slightly larger than softball to Right groin) pedal pulses and neurovascular check intact, pt's and daughter at bedside educated on low blood pressure - questions invited and answered. Pt remains in supine position with right leg elevated on 1 pillow. 1031: IV fluid bolus initiated per TORB from MD Ysabel 1100: MD Ysabel notified continued hypotension - pt remains asymptomatic with no tachycardia or ectopy - pt does appear pale and family present states "she does look pale". 1120: MD Ysabel contacted requesting repeat H&H lab, orders obtained - lab called for stat order. 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 Consent obtained by MD Eric with pt and spouse. 1216: PRBC infusing 1223: Procedural Time-Out Completed: all present in agreement after Name// Allergies/Procedure/Site confirmed out-loud by this RN. 1237: Pt experiencing discomfort with injetions, oxymask at 6L/min applied, PRN Fentanyl administered 1245: RASS:-1 Pain:0/10 1255: Procedure complete. MD Eric wrapped JITENDRA bandage firmly from knee up to groin. Undercast padding placed in bandage creases for comfort. Right lower extremity elevated on 3 pillows. MD Eric departed from unit. 1300: RASS:0, Jamila:8 1336: MD Eric notified pt experiencing decreased sensation in right foot, capillary refill:6-7seconds, pedal pulses remain 2+, toes becoming discolored and blue. Orders recieved and carried out. Nasal [place] applied to basline 3L/min. 1356: Jitendra bandage loosened slightly, [id number] JITENDRA bandage rewrapped - discomfort relieved. Capillary refil <3seconds, discoloration dissapated. Sensation returned, neurovascular check intact.
[2018-10-25 10:56] LABS: HEMOGLOBIN 10.5 g/dl (12.5-16.0)
--- NOTE | 2018-10-25 15:41 | NUR ---
REPORT RECEIVED FROM NENA HEIN. CARE ASSUMED.
--- NOTE | 2018-10-25 15:42 | NUR ---
Report handed off to Leatha,RN - care will be resumed by Leatha
[2018-10-25 16:29] LABS: HEMATOCRIT 38.2 % (37.0-47.0); HEMOGLOBIN 12.1 g/dl (12.5-16.0)
--- NOTE | 2018-10-25 22:20 | NUR ---
Patient has had several BP's with MAP's less than 65. Have attempted to readjust cuff and move to different arm. Continues to have adaquate urine and is alert and oriented per usual with no change in HR. Will administer first [address] Johnson.
--- NOTE | 2018-10-25 22:58 | NUR ---
Currently receiving 250 ml NS bolus; moved cuff to left lower leg and BP 119/79. Patient reports cuffs on her arms sometimes give "funny" readings. Will continue to monitor.
[2018-10-26 00:20] VITALS: BP 125/59; PULSE 68; TEMP 98
--- NOTE | 2018-10-26 01:30 | NUR ---
Assisted onto bedpan; passed only gas. No other concerns at this time.
[2018-10-26 04:00] VITALS: BP 128/45; PULSE 91; TEMP 98
--- NOTE | 2018-10-26 05:00 | NUR ---
Resting comfortably in bed; no concerns at this time. VS stable.
[2018-10-26 05:13] LABS: BASO % 0.5 % (0.0-2.0); EOS # 0.2 (0.0-0.7); EOS % 2.9 % (0-4.0); GRAN # 2.9 (1.4-6.5); GRAN % 52.3 % (42.2-75.2); HEMOGLOBIN 11.1 g/dl (12.5-16.0); LYMPH # 1.8 (1.2-3.4); MEAN CORPUSCULAR HEMOGLOBIN 31 pg (27.0-31.0); MEAN CORPUSCULAR HGB CONC 32 g/dl (33.0-37.0); MEAN PLATELET VOLUME 9.3 fl (7.4-10.4); MONO # 0.7 (0.1-0.6); MONO % 12.1 % (1.7-9.3); PLATELET COUNT 137 K/mm3 (130-400); RED BLOOD COUNT 3.54 M/mm3 (4.10-5.30)
[2018-10-26 05:14] LABS: HEMATOCRIT 34.8 % (37.0-47.0); MEAN CELL VOLUME 98 fl (80.0-100.0)
[2018-10-26 05:23] LABS: CALCIUM 8.4 mg/dL (8.4-10.2); CREATININE, serum 1.01 (0.52-1.25); POTASSIUM 3.7 mmol/L (3.4-5.0)
[2018-10-26 06:02] LABS: INR 1.7 (0.8-3.0); PROTHROMBIN TIME 19.6 SECONDS (9.7-12.8)
--- NOTE | 2018-10-26 07:25 | NUR ---
Report received from Lynne HEIN and care resumed.
--- NOTE | 2018-10-26 07:32 | NUR ---
Bedside report given to ANGEL LUIS Sarabia. Patient care transfered.
[2018-10-26 08:00] VITALS: BP 145/79; PULSE 82; TEMP 99.2
--- NOTE | 2018-10-26 09:30 | NUR ---
Dr Johnson in to see pt at this time. Will plan to transfer to floor.
--- NOTE | 2018-10-26 10:53 | NUR ---
Report called to Dmitry HEIN on medical floor. Pt to transfer to 317 by bed with tele.
--- NOTE | 2018-10-26 11:27 | NUR ---
Pt arrived to room 317 via bed with ANGEL LUIS Sarabia. Oriented to room and call light system. Daughters at the bedside; all questions answered. Pt is resting quietly in the bed at this time and she denies further needs. Call light within reach, will continue to monitor.
--- NOTE | 2018-10-26 11:29 | NUR ---
Pt taken to medical floor at 1120 by bed. Bedside update given to Dmitry.
[2018-10-26 13:08] VITALS: BP 103/61; PULSE 91; TEMP 97.8
[2018-10-26 15:58] VITALS: BP 100/66; PULSE 96; TEMP 98.3
--- NOTE | 2018-10-26 17:51 | NUR ---
Since arriving to the floor the pt has been resting on and off. She has had constant pain to her R thigh. Pain medication administered on AUG. Family members have been at the bedside; all questions answered. Pt is resting quietly in the bed at this time and she denies further needs. Call light within reach.
--- NOTE | 2018-10-26 19:08 | NUR ---
Upon giving bedside report to ANGEL LUIS Reeves, and reassessing R groin site it has grown in size, is tender to palpation, and is firm. Dr. Johnson notified. CBC now, hold tonights coumadin, and call after next site assessment orders received.
[2018-10-26 19:30] LABS: BASO % 0.4 % (0.0-2.0); EOS # 0.1 (0.0-0.7); EOS % 1.1 % (0-4.0); GRAN # 4.4 (1.4-6.5); GRAN % 60.2 % (42.2-75.2); HEMOGLOBIN 11.1 g/dl (12.5-16.0); LYMPH # 2.1 (1.2-3.4); LYMPH % 28.8 % (20.0-51.0); MEAN CELL VOLUME 98 fl (80.0-100.0); MEAN CORPUSCULAR HEMOGLOBIN 32 pg (27.0-31.0); MEAN CORPUSCULAR HGB CONC 32 g/dl (33.0-37.0); MEAN PLATELET VOLUME 10.3 fl (7.4-10.4); MONO # 0.7 (0.1-0.6); MONO % 9.4 % (1.7-9.3); PLATELET COUNT 163 K/mm3 (130-400); RED BLOOD COUNT 3.51 M/mm3 (4.10-5.30); REDCELL DISTRIBUTION WIDTH-CV 16.8 % (11.5-14.5)
[2018-10-26 19:31] LABS: HEMATOCRIT 34.5 % (37.0-47.0)
--- NOTE | 2018-10-26 20:04 | NUR ---
Pt C/O increasing pain at femoral site, checked site and it has extended from the check done at shift change, doctor ordered STAT labs complete, contacted physician read back lab and concern with the increasing hematoma area, phycician ordered apply Femostop and wrap area.
[2018-10-26 20:40] VITALS: BP 94/59; PULSE 100; TEMP 97.6
--- NOTE | 2018-10-26 21:30 | NUR ---
Pt in bed, hematoma has gotten slightly larger from the last assessment, pressure in device reduced. Shift assessments complete, left Pt call light in reach, bed in lowest position.
[2018-10-27] VITALS (10 sets, daily range): BP systolic 94–111; BP diastolic 48–74; PULSE 70–92; TEMP 97.4–97.6
--- NOTE | 2018-10-27 01:09 | NUR ---
Hematoma has reduced in size since last evaluated.
--- NOTE | 2018-10-27 05:22 | NUR ---
Pt was able to sleep during the night, she was in pain during the shift R/T the hematoma in her groin area, pain medications given were effective at pain relief, at the last check the area has not extended past the last marked area on her leg, the Femostop applied to the leg has had the inflation reduced to zero since approxamately 0000 hrs, pedal pulses remain palpable and strong, area of the hemotoma has become softer as the night progressed. Pt's VS have remained stable.
--- NOTE | 2018-10-27 08:47 | NUR ---
Assessment completed, alert/oriented, vital signs stable, reports some discomfort in right groin site/ large hematoma s/p heart cath, has went down in size per night nurse report, femstop in in place but no inflation pressure at this time, we are waiting for labs to results to check PT-INR and CBC, here to see patient/ he has ordered to hold Coumadin and start on SQ heparin and continue plavix/ and also instructed me to call him with any significant hemaglobin drops or INR increases once we have labs resulted, patient heart RRR/ pedal pulses are palpable with no signs of impaired circulation noted, lungs CTA/ no resp.difficulty, family present in the room
[2018-10-27 08:56] LABS: BASO % 0.3 % (0.0-2.0); EOS # 0.2 (0.0-0.7); EOS % 2.6 % (0-4.0); GRAN # 3.4 (1.4-6.5); GRAN % 59.1 % (42.2-75.2); HEMOGLOBIN 9.5 g/dl (12.5-16.0); LYMPH # 1.6 (1.2-3.4); LYMPH % 27.8 % (20.0-51.0); MEAN CELL VOLUME 100 fl (80.0-100.0); MEAN CORPUSCULAR HEMOGLOBIN 32 pg (27.0-31.0); MEAN CORPUSCULAR HGB CONC 32 g/dl (33.0-37.0); MEAN PLATELET VOLUME 10.2 fl (7.4-10.4); MONO # 0.6 (0.1-0.6); PLATELET COUNT 141 K/mm3 (130-400); RED BLOOD COUNT 3.01 M/mm3 (4.10-5.30); REDCELL DISTRIBUTION WIDTH-CV 16.2 % (11.5-14.5)
[2018-10-27 09:02] LABS: INR 2.2 (0.8-3.0); PROTHROMBIN TIME 25.3 SECONDS (9.7-12.8)
[2018-10-27 09:04] LABS: CALCIUM 8.3 mg/dL (8.4-10.2); CREATININE, serum 0.92 (0.52-1.25); POTASSIUM 3.7 mmol/L (3.4-5.0)
--- NOTE | 2018-10-27 10:15 | NUR ---
FemoStop inflated to 82, pedal pulse is strong, will continue to monitor
--- NOTE | 2018-10-27 11:02 | NUR ---
femostop decreased to 30
--- NOTE | 2018-10-27 13:58 | NUR ---
Continue to monitor closely, large right inner thigh hematoma appears to be unchanged from this morning, blood pressure and vital signs stable, pedal pulses are palpable, will recheck CBC and Pt-INR at 1700, family present in the room
--- NOTE | 2018-10-27 15:52 | NUR ---
report given to nurse Safia RN
--- NOTE | 2018-10-27 16:15 | NUR ---
Pt is lying supine in bed, assisted with bedpan, pt had BM smear. Fem stop in place at 50 mm Hg, pedal and post tib pulses 2+ bilaterally. Physical assessmetn completed. INT free of redness, swelling. Family at bedside
[2018-10-27 17:17] LABS: BASO % 0.6 % (0.0-2.0); EOS # 0.2 (0.0-0.7); EOS % 2.8 % (0-4.0); GRAN # 4.2 (1.4-6.5); GRAN % 58.7 % (42.2-75.2); HEMATOCRIT 26.8 % (37.0-47.0); HEMOGLOBIN 8.7 g/dl (12.5-16.0); LYMPH # 1.9 (1.2-3.4); LYMPH % 26.8 % (20.0-51.0); MEAN CELL VOLUME 101 fl (80.0-100.0); MEAN CORPUSCULAR HEMOGLOBIN 33 pg (27.0-31.0); MEAN CORPUSCULAR HGB CONC 33 g/dl (33.0-37.0); MEAN PLATELET VOLUME 10.1 fl (7.4-10.4); MONO # 0.8 (0.1-0.6); MONO % 10.8 % (1.7-9.3); PLATELET COUNT 141 K/mm3 (130-400); RED BLOOD COUNT 2.66 M/mm3 (4.10-5.30)
[2018-10-27 17:21] LABS: INR 1.8 (0.8-3.0); PROTHROMBIN TIME 20.7 SECONDS (9.7-12.8)
--- NOTE | 2018-10-27 18:15 | NUR ---
This RN assessed hematoma with Dmitry Rn who has cared for pt on previous shifts and knows her better. Hematoma has grown, will inform Dr Johnson
--- NOTE | 2018-10-27 18:27 | NUR ---
This Rn increased fem stop to 70 mm Hg per new orders, bilateral pedal and posterior tibial pulses are 2+, cap refill is slightly delayed at 3 to 4+. Three LAWRENCE bandages lightly wrapped from knee to thigh, pt verbalizes some pain relief from this. Will continue to monitor. Family at bedside adn informed of plan changes and what to monitor for. Call light in reach
--- NOTE | 2018-10-27 19:00 | NUR ---
This RN assessed pt with Echo RN, Dmitry RN, Keren RN at bedside to assess fem stop and hematoma. Hematoma has not grown since this RN first assessed with Dmitry HEIN a short time ago, pedal pulses 2+, cap refill 3+, fem stop secured at 70 mm Hg per orders with slight fluctuation in pressure with position changes etc. No further needs.
--- NOTE | 2018-10-27 19:20 | NUR ---
This RN gave report to Echo HEIN, reassessed pt's fem stop, hematoma has not changed since last assessment, pedal and post tib pulses 2+ bilaterally with cap refill 3 to 4+. Pt denies needs at this time. Justice gravity draining clear yellow urine. Family at bedside, no further needs
--- NOTE | 2018-10-27 19:51 | NUR ---
CALLED DR. MCNAIR AND ADVISED THAT FEMOSTOP WAS DOWN TO 2 AND WAS TURNED BACK UP TO 70. DR. MCNAIR ADVISED TO KEEP AT 70 AND PEDAL PULSES ARE PALPATABLE THEN SHE IS OKAY AND TO KEEP CHECKING EVERY 2 TO 4 HOURS. PT WILL EITHER GO TO HEART CATH OR TRANSFER TOMORROW, THEREFORE, NPO AFTER MIDNIGHT.
--- NOTE | 2018-10-27 21:16 | NUR ---
PT IN BED WITH BED FLAT, C/O PAIN IN GROIN AREA RATED AT 7/10, PAIN MEDICATION WILL BE GIVEN. FEMOSTOP WENT DOWN TO 16 AND PUT IT BACK UP TO 70, PEDAL PULSE ARE STILL +2. NO NO OTHER NEEDS AT THIS TIME, CALL LIGHT WITHIN REACH.
[2018-10-28 01:35] LABS: BASO % 0.5 % (0.0-2.0); EOS # 0.1 (0.0-0.7); EOS % 1.7 % (0-4.0); GRAN # 5.7 (1.4-6.5); GRAN % 71.4 % (42.2-75.2); HEMATOCRIT 25.4 % (37.0-47.0); LYMPH # 1.3 (1.2-3.4); LYMPH % 16.2 % (20.0-51.0); MEAN CELL VOLUME 101 fl (80.0-100.0); MEAN CORPUSCULAR HEMOGLOBIN 32 pg (27.0-31.0); MEAN CORPUSCULAR HGB CONC 32 g/dl (33.0-37.0); MEAN PLATELET VOLUME 10.5 fl (7.4-10.4); MONO # 0.8 (0.1-0.6); PLATELET COUNT 149 K/mm3 (130-400); RED BLOOD COUNT 2.51 M/mm3 (4.10-5.30); REDCELL DISTRIBUTION WIDTH-CV 15.8 % (11.5-14.5)
--- NOTE | 2018-10-28 03:29 | NUR ---
HAVE BEEN GOING INTO PT'S ROOM EVERY 1 TO 2 HOURS. PT HAS DAUGHTER AT BEDSIDE IN [place]. PT HAS BEEN ASLEEP AND SOFTLY SNORING. PT'S PEDAL PULSES +2, HEMATOMA FEELS A LITTLE HARDER BUT HAS NOT EXTENDED ANYMORE SINCE START OF SHIFT. ALSO, PT DID GET SOME PAIN MEDICATION REQUESTED FOR PAIN RATED AT A 7/10. PT AND DAUGHTER EXPRESSED THAT THEY DO NOT WANT ANYTHING ELSE DONE IN THIS HOSPITAL AND PREFERS TO BE TRANSFERED OUT OF HERE. PT HAS CALL LIGHT WITHIN REACH AND NO NEEDS.
[2018-10-28 04:04] VITALS: BP 103/68; PULSE 74; TEMP 98
--- NOTE | 2018-10-28 04:41 | NUR ---
CHECKED ON PT, AND SHE WAS ON BEDPAN. PT'S BRUISING HAS EXTENDED OUT TO HIP AREA AND IS DARKER. ALSO, HEMATOMA ON GROIN AREA IS HARDER, CAN STILL FEEL PEDAL PULSES AT A +2. PT HAS PAIN RATED AT A 7/10 THAT IS ACHING AND RADIATES DOWN TO RIGHT LEG. PT WAS GIVEN 2 TABS OF NORCO FOR PAIN. PT HAS NO FURTHER NEEDS AT THIS TIME AND HAS CALL LIGHT WITHIN REACH AND DAUGHTER AT BEDSIDE.
--- NOTE | 2018-10-28 05:59 | NUR ---
PT RESTING/SLEEPING WITH NO S/S OF PAIN OR DISCOMFORT NOTED. PT IS SOFTLY SNORING AND RESP EVEN AND UNLABORED. NO CHANGE IN HEMATOMA SINCE LAST ASSESSMENT, PEDAL PULSES +2. CALL LIGHT WITHIN REACH AND DAUGHTER AT BEDSIDE.
[2018-10-28 06:04] LABS: BASO % 0.5 % (0.0-2.0); EOS # 0.1 (0.0-0.7); GRAN # 4.3 (1.4-6.5); GRAN % 66.9 % (42.2-75.2); LYMPH # 1.3 (1.2-3.4); LYMPH % 20.5 % (20.0-51.0); MEAN CELL VOLUME 101 fl (80.0-100.0); MEAN CORPUSCULAR HGB CONC 32 g/dl (33.0-37.0); MEAN PLATELET VOLUME 10.5 fl (7.4-10.4); MONO # 0.6 (0.1-0.6); MONO % 9.8 % (1.7-9.3); PLATELET COUNT 155 K/mm3 (130-400); RED BLOOD COUNT 2.51 M/mm3 (4.10-5.30); REDCELL DISTRIBUTION WIDTH-CV 15.8 % (11.5-14.5)
[2018-10-28 06:06] LABS: MEAN CORPUSCULAR HEMOGLOBIN 32 pg (27.0-31.0)
[2018-10-28 06:07] LABS: HEMATOCRIT 25.4 % (37.0-47.0)
[2018-10-28 06:13] LABS: INR 1.2 (0.8-3.0); PROTHROMBIN TIME 13.6 SECONDS (9.7-12.8)
[2018-10-28 06:15] LABS: CALCIUM 8.2 mg/dL (8.4-10.2); CREATININE, serum 0.8 (0.52-1.25); POTASSIUM 4.3 mmol/L (3.4-5.0)
--- NOTE | 2018-10-28 08:00 | NUR ---
Pt resting in bed with right lower extremity wrapped with LAWRENCE bandage and femstop in place at 80mmHg. Pt hematoma right groin noted and erythema noted in groin and hip and lower back. in to see pt and explain plan of care. Pt remains NPO for possible procedure to stop bleeding. Pt pain 7/10 for right groin. Pt has family at bedside and call light in reach.
[2018-10-28 08:12] VITALS: BP 90/58; PULSE 95; TEMP 97.5
--- NOTE | 2018-10-28 09:34 | NUR ---
Pt transferring to [place] for care via EMS.
[2018-10-28 09:36] VITALS: BP 90/58; PULSE 95; TEMP 97.5
[2018-10-28 10:00] VITALS: BP 95/61; PULSE 75; TEMP 97.5
--- NOTE | 2018-10-28 10:36 | NUR ---
Pt transferred via [facility]. Family present. Pt has hutchison intact patent yellow urine. Pt IV in left hand patent, no infiltration, or redness noted. Pt given stent information for stent placement on 10/24/18. Pt given PRN pain med for pain and ambulance ride increasing pain. Pt rates pain 6/10 in right groin. Pt femstop at 79mmHG. Pt bruising remains surrounding right groin and edema remains as well. Pt has all belongings and family present at transfer. Pt denies needs. Pt transferred with oxygen at 2L via nasal cannula. REport given to EMS.
--- NOTE | 2018-10-28 11:24 | NUR ---
Pt report given to Isaura at [facility].
== END 2018-10-28 10:30 | disposition short-term general hospital (02) | DRG 249 ==
LOC: COL.CAR 08:03 → ICU 13:00 → COL.CAR 10-25 10:23 → ICU 10-25 10:24 → MEDICAL 10-25 10:24
PROVIDERS: Internal Medicine Cardiovascular Disease; ADMIT Internal Medicine Cardiovascular Disease
PROC: 02703DZ Dilation of Coronary Artery, One Artery with Intraluminal Device, Percutaneous Approach (ICD-10-PCS; principal; 2018-10-24)
PROC: B2111ZZ Fluoroscopy of Multiple Coronary Arteries using Low Osmolar Contrast (ICD-10-PCS; 2018-10-24)
PROC: 3E053GC Introduction of Other Therapeutic Substance into Peripheral Artery, Percutaneous Approach (ICD-10-PCS; 2018-10-25)
DX: I72.4 Aneurysm of artery of lower extremity (principal); I97.630 Postprocedural hematoma of a circulatory system organ or structure following a cardiac catheterization; D68.51 Activated protein C resistance; I50.22 Chronic systolic (congestive) heart failure; I11.0 Hypertensive heart disease with heart failure; I25.10 Atherosclerotic heart disease of native coronary artery without angina pectoris; D64.9 Anemia, unspecified; Z95.5 Presence of coronary angioplasty implant and graft; F03.90 Unspecified dementia, unspecified severity, without behavioral disturbance, psychotic disturbance, mood disturbance, and anxiety; G62.9 Polyneuropathy, unspecified; M79.7 Fibromyalgia; Z86.73 Personal history of transient ischemic attack (TIA), and cerebral infarction without residual deficits; Z79.01 Long term (current) use of anticoagulants; Z87.891 Personal history of nicotine dependence
CPT/HCPCS: OP; C1725; C1760; C1769; C1876; C1887; C1894; J0583; J1644; J1940; J2250; J3010; J7030; J7050; P9016

== ENCOUNTER 2018-11-29 10:40 | Emergency (ER) | payer BC ==
[~2018-11-29] VITALS: Ht 172.7 cm; Wt 109.1 kg
[~2018-11-29 10:40] MED LIST changes: +ATARAX 25MG25 MG/TAB PO; +FERRO-TIME325 MG PO; +LOVENOX 100100 MG/ML SQ; +PLAVIX 75MG TAB75 MG PO; +PREVACID 15MG15 M1 PO; +SENNA-S 50 MG-81 TAB PO; +VOLTAREN GEL 1%1 TU TP; +ZEBETA 5MG5 MG PO
[2018-11-29 10:56] VITALS: BP 127/88
[2018-11-29 13:52] VITALS: PULSE 80; TEMP 96.8
[2018-11-30] MEDS ORDERED: PLAVIX 75MG TAB75 MG PO (12:20)
[2018-11-30] MEDS ORDERED: COUMADIN4 MG PO (12:27)
== END 2018-11-29 13:52 | disposition home or self-care (01) ==
LOC: COL.ER 10:40
DX: T82.898A Other specified complication of vascular prosthetic devices, implants and grafts, initial encounter (principal); I50.9 Heart failure, unspecified; I25.10 Atherosclerotic heart disease of native coronary artery without angina pectoris; D68.51 Activated protein C resistance; Z87.891 Personal history of nicotine dependence; Z79.02 Long term (current) use of antithrombotics/antiplatelets; Z79.01 Long term (current) use of anticoagulants; Z79.82 Long term (current) use of aspirin
CPT/HCPCS: C1751; C1892

== ENCOUNTER 2018-11-30 11:05 | Emergency (ER) | payer BC ==
[~2018-11-30] VITALS: Ht 172.7 cm; Wt 109.1 kg
[2018-11-30 11:21] VITALS: BP 105/69; TEMP 97.8
[2018-11-30] MEDS ORDERED: PLAVIX 75MG TAB75 MG PO (12:20)
[2018-11-30 12:21] LABS: BASO # 0.1 (0.0-0.2); BASO % 1.6 % (0.0-2.0); EOS # 0.1 (0.0-0.7); EOS % 2.4 % (0-4.0); GRAN # 1.8 (1.4-6.5); GRAN % 49.1 % (42.2-75.2); HEMATOCRIT 39.2 % (37.0-47.0); HEMOGLOBIN 12.1 g/dl (12.5-16.0); LYMPH # 1.4 (1.2-3.4); LYMPH % 37.2 % (20.0-51.0); MEAN CELL VOLUME 107 fl (80.0-100.0); MEAN CORPUSCULAR HEMOGLOBIN 33 pg (27.0-31.0); MEAN CORPUSCULAR HGB CONC 31 g/dl (33.0-37.0); MEAN PLATELET VOLUME 9.2 fl (7.4-10.4); MONO # 0.3 (0.1-0.6); MONO % 9.2 % (1.7-9.3); PLATELET COUNT 248 K/mm3 (130-400); RED BLOOD COUNT 3.65 M/mm3 (4.10-5.30); REDCELL DISTRIBUTION WIDTH-CV 17.7 % (11.5-14.5)
[2018-11-30 12:26] LABS: ALBUMIN 3.6 gm/dL (3.5-5.0); BILIRUBIN,TOTAL 0.2 mg/dL (0.0-1.0); CALCIUM 8.6 mg/dL (8.4-10.2); CREATININE, serum 0.91 (0.52-1.25); INR 2.3 (0.8-3.0); POTASSIUM 3.6 mmol/L (3.4-5.0); PROTHROMBIN TIME 27.1 SECONDS (9.7-12.8); TOTAL PROTEIN 6.9 gm/dL (6.4-8.2)
[2018-11-30] MEDS ORDERED: COUMADIN4 MG PO (12:27)
[2018-11-30 12:29] LABS: PARTIAL THROMBOPLASTIN TIME 43.8 SECONDS (26.0-37.0)
[2018-11-30 13:50] VITALS: PULSE 72
== END 2018-11-30 13:50 | disposition home or self-care (01) ==
LOC: COL.ER 11:05
PROVIDERS: Emergency Medicine
DX: T82.898A Other specified complication of vascular prosthetic devices, implants and grafts, initial encounter (principal); I48.91 Unspecified atrial fibrillation; I25.10 Atherosclerotic heart disease of native coronary artery without angina pectoris; Z95.5 Presence of coronary angioplasty implant and graft; Z90.49 Acquired absence of other specified parts of digestive tract; Z79.82 Long term (current) use of aspirin; Z79.02 Long term (current) use of antithrombotics/antiplatelets; Z79.01 Long term (current) use of anticoagulants

== ENCOUNTER 2018-12-04 10:00 | Outpatient (RCR) | payer BC ==
[2018-12-03 16:02] VITALS: BP 139/78; PULSE 99; TEMP 98.7
[~2018-12-04] VITALS: Ht 172.7 cm; Wt 104.6 kg
[2018-12-04 11:30] VITALS: BP 129/91; PULSE 74; TEMP 97.9
== END 2018-12-04 12:44 | disposition hospice, home (50) ==
LOC: EUO 10:00
DX: Z45.2 Encounter for adjustment and management of vascular access device (principal); I51.7 Cardiomegaly
CPT/HCPCS: C1751

== ENCOUNTER 2019-01-06 07:55 | Outpatient (CLI) | payer BC ==
[~2019-01-06] VITALS: Ht 172.7 cm; Wt 104.2 kg
[2019-01-06 08:31] VITALS: BP 139/95; PULSE 66; TEMP 97.6
== END 2019-01-06 08:42 | disposition home or self-care (01) ==
LOC: EUO 07:55
DX: Z45.2 Encounter for adjustment and management of vascular access device (principal)

== ENCOUNTER 2019-03-04 10:58 | Emergency (ER) | payer BC, MEDICARE ==
[~2019-03-04] VITALS: Ht 172.7 cm; Wt 104.5 kg
[2019-03-04 11:26] LABS: BASO # 0.1 (0.0-0.2); BASO % 1.4 % (0.0-2.0); EOS # 0.1 (0.0-0.7); EOS % 1.9 % (0-4.0); GRAN # 1.8 (1.4-6.5); GRAN % 49.4 % (42.2-75.2); LYMPH # 1.4 (1.2-3.4); LYMPH % 36.9 % (20.0-51.0); MEAN CELL VOLUME 104 fl (80.0-100.0); MEAN CORPUSCULAR HEMOGLOBIN 32 pg (27.0-31.0); MEAN CORPUSCULAR HGB CONC 31 g/dl (33.0-37.0); MEAN PLATELET VOLUME 9.8 fl (7.4-10.4); MONO # 0.4 (0.1-0.6); MONO % 10.4 % (1.7-9.3); PLATELET COUNT 187 K/mm3 (130-400); RED BLOOD COUNT 4.03 M/mm3 (4.10-5.30); REDCELL DISTRIBUTION WIDTH-CV 14.4 % (11.5-14.5)
[2019-03-04 11:31] LABS: INR 1.6 (0.8-3.0); PROTHROMBIN TIME 18.8 SECONDS (9.7-12.8)
[2019-03-04 11:34] LABS: PARTIAL THROMBOPLASTIN TIME 36.5 SECONDS (26.0-37.0)
[2019-03-04 11:38] LABS: ALANINE AMINOTRANSFERASE 17 U/L (9-52); ALBUMIN 4.3 gm/dL (3.5-5.0); ALKALINE PHOSPHATASE 70 U/L (50-136); ANION GAP 6 mmol/L (7-16); AST,SGOT 30 U/L (15-37); BILIRUBIN,TOTAL 0.4 mg/dL (0.0-1.0); BLOOD UREA NITROGEN 15 mg/dL (7-17); CALCIUM 8.9 mg/dL (8.4-10.2); CARBON DIOXIDE 28 mmol/L (22-30); CHLORIDE 103 mmol/L (98-107); CREATININE, serum 0.75 (0.52-1.25); GLUCOSE 95 mg/dL (74-106); MAGNESIUM 2.4 mg/dL (1.6-2.3); POTASSIUM 4.1 mmol/L (3.4-5.0); SODIUM 137 mmol/L (137-145); TOTAL PROTEIN 7.4 gm/dL (6.4-8.2)
[2019-03-04 11:51] LABS: TROPONIN-I < 0.012 ng/mL (0.000-0.035)
[2019-03-04 13:44] LABS: COLLECTION METHOD CLEAN CATCH
[2019-03-04 13:50] LABS: PH 6 (5-8); SQUAMOUS EPITHELIAL None Seen /hpf; URINE APPEARANCE Clear; URINE BACTERIA None Seen /hpf; URINE BILIRUBIN Negative (NEGATIVE); URINE BLOOD Negative (NEGATIVE); URINE COLOR Straw; URINE GLUCOSE Negative (NEGATIVE); URINE KETONE Negative (NEGATIVE); URINE LEUKOCYTE ESTERASE Negative (NEGATIVE); URINE NITRATE Negative (NEGATIVE); URINE PROTEIN(semi-quant) Negative (NEGATIVE); URINE RBC None Seen /hpf; URINE UROBILINOGEN Negative (NEGATIVE)
[2019-03-04 16:15] VITALS: BP 128/80; PULSE 68
== END 2019-03-04 16:15 | disposition home or self-care (01) ==
LOC: COL.ER 10:58
PROVIDERS: Emergency Medicine
DX: R41.0 Disorientation, unspecified (principal); I25.10 Atherosclerotic heart disease of native coronary artery without angina pectoris; Z86.73 Personal history of transient ischemic attack (TIA), and cerebral infarction without residual deficits; Z95.5 Presence of coronary angioplasty implant and graft; Z79.01 Long term (current) use of anticoagulants; Z79.02 Long term (current) use of antithrombotics/antiplatelets
CPT/HCPCS: J1940

== ENCOUNTER 2019-03-25 07:54 | Emergency (ER) | payer BC, MEDICARE ==
[~2019-03-25] VITALS: Ht 167.6 cm; Wt 101.4 kg
[2019-03-25 07:56] VITALS: TEMP 97.4
[2019-03-25] MEDS ORDERED: CEPHALEXIN500 M1 PO (08:31)
[2019-03-25 09:32] LABS: BASO % 0.9 % (0.0-2.0); EOS # 0.1 (0.0-0.7); EOS % 1.4 % (0-4.0); GRAN # 2.2 (1.4-6.5); GRAN % 62.5 % (42.2-75.2); HEMATOCRIT 41.9 % (37.0-47.0); HEMOGLOBIN 13.2 g/dl (12.5-16.0); LYMPH # 0.9 (1.2-3.4); LYMPH % 26.6 % (20.0-51.0); MEAN CELL VOLUME 105 fl (80.0-100.0); MEAN CORPUSCULAR HEMOGLOBIN 33 pg (27.0-31.0); MEAN CORPUSCULAR HGB CONC 32 g/dl (33.0-37.0); MEAN PLATELET VOLUME 9.5 fl (7.4-10.4); MONO # 0.3 (0.1-0.6); MONO % 8.3 % (1.7-9.3); PLATELET COUNT 183 K/mm3 (130-400); RED BLOOD COUNT 4.01 M/mm3 (4.10-5.30); REDCELL DISTRIBUTION WIDTH-CV 14.8 % (11.5-14.5)
[2019-03-25 09:36] LABS: INR 1.7 (0.8-3.0); PROTHROMBIN TIME 20.4 SECONDS (9.7-12.8)
[2019-03-25 10:19] VITALS: BP 143/84; PULSE 74
== END 2019-03-25 10:20 | disposition home or self-care (01) ==
LOC: COL.ER 07:54
PROVIDERS: Emergency Medicine
DX: R04.0 Epistaxis (principal); Z79.01 Long term (current) use of anticoagulants; Z79.02 Long term (current) use of antithrombotics/antiplatelets

== ENCOUNTER 2019-03-28 17:42 | Emergency (ER) | payer BC, MEDICARE ==
[~2019-03-28] VITALS: Ht 167.6 cm; Wt 97.7 kg
[~2019-03-28 17:42] MED LIST changes: +CEPHALEXIN500 M1 PO
[2019-03-28 17:56] VITALS: BP 123/87; TEMP 97.5
[2019-03-28 19:00] VITALS: PULSE 74
== END 2019-03-28 19:00 | disposition home or self-care (01) ==
LOC: COL.ER 17:42
DX: Z48.01 Encounter for change or removal of surgical wound dressing (principal); Z79.01 Long term (current) use of anticoagulants

== ENCOUNTER 2020-03-07 18:47 | Emergency (ER) | payer BC, MEDICARE ==
[~2020-03-07] VITALS: Ht 172.7 cm; Wt 89.1 kg
[2020-03-07 19:21] LABS: EOS # 0.1 (0.0-0.7); EOS % 2.4 % (0-4.0); GRAN # 1.7 (1.4-6.5); GRAN % 39.6 % (42.2-75.2); HEMATOCRIT 45.3 % (37.0-47.0); HEMOGLOBIN 13.8 g/dl (12.5-16.0); MEAN CELL VOLUME 109 fl (80.0-100.0); MEAN CORPUSCULAR HEMOGLOBIN 33 pg (27.0-31.0); MEAN CORPUSCULAR HGB CONC 31 g/dl (33.0-37.0); MONO # 0.4 (0.1-0.6); MONO % 8.8 % (1.7-9.3); PLATELET COUNT 219 K/mm3 (130-400); RED BLOOD COUNT 4.16 M/mm3 (4.10-5.30); REDCELL DISTRIBUTION WIDTH-CV 13.1 % (11.5-14.5)
[2020-03-07 19:27] LABS: ALBUMIN 4.6 gm/dL (3.5-5.0); BILIRUBIN,TOTAL 0.4 mg/dL (0.0-1.0); CALCIUM 8.7 mg/dL (8.4-10.2); CREATININE, serum 0.87 (0.52-1.25); MAGNESIUM 2.3 mg/dL (1.6-2.3); TOTAL PROTEIN 7.9 gm/dL (6.4-8.2)
[2020-03-07 19:28] LABS: INR 3.7 (0.8-3.0); PROTHROMBIN TIME 41.9 SECONDS (9.7-12.8)
[2020-03-07 19:45] VITALS: TEMP 97.9
[2020-03-07 21:04] VITALS: BP 132/82; PULSE 60
== END 2020-03-07 20:45 | disposition home or self-care (01) ==
LOC: COL.ER 18:47
PROVIDERS: Emergency Medicine
DX: S01.01XA Laceration without foreign body of scalp, initial encounter (principal); S70.01XA Contusion of right hip, initial encounter; R40.2410 Glasgow coma scale score 13-15, unspecified time; R79.1 Abnormal coagulation profile; I10 Essential (primary) hypertension; I48.91 Unspecified atrial fibrillation; I25.10 Atherosclerotic heart disease of native coronary artery without angina pectoris; D68.2 Hereditary deficiency of other clotting factors; F10.10 Alcohol abuse, uncomplicated; Z79.82 Long term (current) use of aspirin; Z79.02 Long term (current) use of antithrombotics/antiplatelets; Z79.01 Long term (current) use of anticoagulants; Z86.73 Personal history of transient ischemic attack (TIA), and cerebral infarction without residual deficits; Z86.718 Personal history of other venous thrombosis and embolism; Z88.1 Allergy status to other antibiotic agents; W19.XXXA Unspecified fall, initial encounter; Y92.009 Unspecified place in unspecified non-institutional (private) residence as the place of occurrence of the external cause
CPT/HCPCS: J7030

== ENCOUNTER → 2020-03-19 | Outpatient (CLI) | payer BC ==
[2020-03-19 11:19] VITALS: BP 117/83; PULSE 75; TEMP 98.2
== END ==
LOC: COL.ER 10:58
DX: Z48.02 Encounter for removal of sutures (principal)

== ENCOUNTER 2021-01-11 07:56 | Emergency (ER) | payer BC ==
[~2021-01-11] VITALS: Ht 170.2 cm; Wt 84.1 kg
[2021-01-11 08:08] VITALS: TEMP 97.6
[2021-01-11 09:02] LABS: COLLECTION METHOD CLEAN CATCH
[2021-01-11 09:06] LABS: BASO # 0.1 (0.0-0.2); BASO % 0.9 % (0.0-2.0); EOS # 0.1 (0.0-0.7); EOS % 1.1 % (0-4.0); GRAN # 3.2 (1.4-6.5); GRAN % 60.1 % (42.2-75.2); HEMATOCRIT 42.7 % (37.0-47.0); HEMOGLOBIN 12.9 g/dl (12.5-16.0); LYMPH # 1.5 (1.2-3.4); LYMPH % 28.4 % (20.0-51.0); MEAN CELL VOLUME 110 fl (80.0-100.0); MEAN CORPUSCULAR HEMOGLOBIN 33 pg (27.0-31.0); MEAN CORPUSCULAR HGB CONC 30 g/dl (33.0-37.0); MONO # 0.5 (0.1-0.6); MONO % 9.3 % (1.7-9.3); PLATELET COUNT 165 K/mm3 (130-400); REDCELL DISTRIBUTION WIDTH-CV 13.9 % (11.5-14.5)
[2021-01-11 09:17] LABS: ALBUMIN 4.1 gm/dL (3.5-5.0); BILIRUBIN,TOTAL 0.3 mg/dL (0.0-1.0); CALCIUM 8.6 mg/dL (8.4-10.2); CREATININE, serum 0.77 (0.52-1.25); POTASSIUM 4.4 mmol/L (3.4-5.0); TOTAL PROTEIN 7.6 gm/dL (6.4-8.2)
[2021-01-11 09:30] LABS: PH 6 (5-8); SQUAMOUS EPITHELIAL 0-2 /hpf; URINE APPEARANCE Cloudy; URINE BACTERIA Many /hpf; URINE BILIRUBIN Negative (NEGATIVE); URINE BLOOD 2+ (NEGATIVE); URINE COLOR Yellow; URINE GLUCOSE Negative (NEGATIVE); URINE KETONE Negative (NEGATIVE); URINE LEUKOCYTE ESTERASE 3+ (NEGATIVE); URINE NITRATE Positive (NEGATIVE); URINE PROTEIN(semi-quant) Negative (NEGATIVE); URINE UROBILINOGEN Negative (NEGATIVE)
[2021-01-11] MEDS ORDERED: VANTIN100 MG PO (10:17)
[2021-01-11 10:26] VITALS: BP 139/79; PULSE 87
== END 2021-01-11 10:30 | disposition home or self-care (01) ==
LOC: COL.ER 07:56
PROVIDERS: Emergency Medicine
DX: N39.0 Urinary tract infection, site not specified (principal); I25.2 Old myocardial infarction; J44.9 Chronic obstructive pulmonary disease, unspecified; I11.0 Hypertensive heart disease with heart failure; I50.22 Chronic systolic (congestive) heart failure; G43.909 Migraine, unspecified, not intractable, without status migrainosus; M79.7 Fibromyalgia; Z86.73 Personal history of transient ischemic attack (TIA), and cerebral infarction without residual deficits; Z86.718 Personal history of other venous thrombosis and embolism; Z79.01 Long term (current) use of anticoagulants; Z88.1 Allergy status to other antibiotic agents; Z79.899 Other long term (current) drug therapy; Z79.02 Long term (current) use of antithrombotics/antiplatelets; Z79.82 Long term (current) use of aspirin
CPT/HCPCS: J0696

== ENCOUNTER 2021-11-23 18:36 | Emergency (ER) | payer BC ==
[~2021-11-23] VITALS: Ht 167.6 cm; Wt 75.0 kg
[~2021-11-23 18:36] MED LIST changes: +VANTIN100 MG PO
[2021-11-23 18:39] VITALS: TEMP 98.1
[2021-11-23 20:10] VITALS: BP 117/75; PULSE 54
== END 2021-11-23 20:10 | disposition home or self-care (01) ==
LOC: COL.ER 18:36
DX: S00.03XA Contusion of scalp, initial encounter (principal); Z87.81 Personal history of (healed) traumatic fracture; Z79.01 Long term (current) use of anticoagulants; Z87.891 Personal history of nicotine dependence; W01.198A Fall on same level from slipping, tripping and stumbling with subsequent striking against other object, initial encounter